=== PATIENT | male | born 1955 | race Caucasian/White ===

== ENCOUNTER 2019-08-07 17:00 | Emergency (ER) | payer OTHER ==
[~2019-08-07] VITALS: Ht 172.7 cm; Wt 90.9 kg
[~2019-08-07 17:00] MED LIST: LOPRESSOR25 MG PO; METAPROTERENOL20 MG PO; OXYCODONE HCL5 MG PO; PRILOSEC20 MG PO
[2019-08-07 17:10] VITALS: Ht 172.7 cm; Wt 90.9 kg
[2019-08-07] MEDS ORDERED: VOLTAREN75 MG PO (19:39)
[2019-08-07] MEDS ORDERED: TYLENOL W/CODEI1 TAB PO (19:40)
[2019-08-07 20:00] VITALS: BP 184/92
== END 2019-08-07 20:00 | disposition home or self-care (01) ==
LOC: D.ER 17:00
DX: S69.92XA Unspecified injury of left wrist, hand and finger(s), initial encounter (principal); X58.XXXA Exposure to other specified factors, initial encounter